=== PATIENT | male | born 1960 | race Caucasian/White ===

== ENCOUNTER → 2025-07-01 21:15 | Outpatient (REF) | payer MEDICARE, SELFPAY | LOC: DHSLP 21:15 | PROVIDERS: ATTENDING PHYSICIAN Student in an Organized Health Care Education/Training Program; FAMILY PHYSICIAN Family Medicine | DX: G47.33 Obstructive sleep apnea (adult) (pediatric) (principal); G47.31 Primary central sleep apnea | CPT/HCPCS: 95810 ==